=== PATIENT | female | born 1990 | race Caucasian/White ===

== ENCOUNTER → 2017-01-10 | Outpatient (CLI) | payer OTHER ==
[~2017-01-10] MED LIST: ACET-749 PO; BCPILLS PO; FERR325T51 PO; IMT50 PO; PRENTAB26 PO; WLLXL300 PO
== END | disposition home or self-care (01) ==
LOC: C.PAPS 15:04
PROVIDERS: ATTEND Obstetrics & Gynecology
DX: Z12.4 Encounter for screening for malignant neoplasm of cervix (principal)

== ENCOUNTER 2017-03-06 20:06 | Emergency (ER) | payer OTHER ==
[~2017-03-06] VITALS: Ht 157.5 cm; Wt 73.3 kg
[~2017-03-06 20:06] MED LIST changes: -BCPILLS PO; -IMT50 PO; -WLLXL300 PO
[2017-03-06 20:18] VITALS: Ht 157.5 cm; Wt 73.3 kg
[2017-03-06] MEDS ORDERED: ONDANSETRON INJ 2 MG/ML 2 ML VIAL IV STA (20:28)
[2017-03-06] MEDS ORDERED: SODIUM CHLORIDE 0.9% 1000ML 1,000 ML IV STA (20:28)
[2017-03-06] MEDS ORDERED: KETOROLAC TROMETHAMINE 30 MG/ML VIAL IV STA (20:28)
[2017-03-06] MEDS ORDERED: DiphenhydrAMINE HCL 50 MG/ML VIAL IV STA (20:28)
[2017-03-06] MEDS ORDERED: PROCHLORPERAZINE 5 MG/ML 2 ML VIAL IV STA (20:28)
[2017-03-06 20:47] LABS: URINE APPEARANCE CLOUDY (CLEAR); URINE BILIRUBIN NEG (NEG); URINE COLOR DK YELLOW; URINE EPITHELIAL CELL AUTO >30 /lpf (0-5); URINE NITRITE NEG (NEG); UROBILINOGEN NEG (NEG)
[2017-03-06 20:51] LABS: MANUAL MICROSCOPIC REQUIRED? NO; REVIEW REQ? YES
[2017-03-06 20:56] LABS: BASO % 0.2 %; BASO ABS # 0.02 K/uL (0-0.2); COMPLETE YES; EOS % 0.3 %; IG% 0.1 %; LYMPH % 20.2 %; LYMPH ABS # 1.94 K/uL (1.2-3.4); MEAN CELL VOLUME 83.8 fL (80-100); MEAN CORPUSCULAR HGB CONC 32.2 g/dl (32-36); MEAN PLATELET VOLUME 11.9 fL (7.4-10.4); MONO % 8.9 %; NEUT % 70.3 %; PLATELET COUNT 271 K/uL (130-400); RED BLOOD COUNT 4.89 M/uL (4.2-5.4); WHITE BLOOD COUNT 9.59 K/uL (4.8-10.8)
[2017-03-06 20:59] LABS: URINE PATH CASTS 0-3 WBC CASTS /lpf (0)
[2017-03-06 21:00] LABS: ZZUR CULT IF INDIC CLEAN CATCH YES
--- NOTE | 2017-03-06 21:02 | DIAGNOSTIC IMAGING REPORT ---
CHEST ONE VIEW PORTABLE CLINICAL HISTORY: Abdominal pain COMPARISON STUDY: No previous studies for comparison. FINDINGS: The cardiac and mediastinal contours are normal. There is no evidence of focal pulmonary consolidation. There is no evidence of failure. No pleural effusions are visualized.[ No free air is visualized. IMPRESSION: No active disease in the chest. Electronically signed by: Fortunato Daley M.D. 03/06/2017 9:01 PM Dictated Date/Time: 03/06/2017 9:00 PM
[2017-03-06 21:08] LABS: ALT/SGPT 17 U/L (12-78); BLOOD UREA NITROGEN 6 mg/dl (7-18); BUN/CREATININE RATIO 7.5 (10-20); CALCIUM 8.7 mg/dl (8.5-10.1); CARBON DIOXIDE 23 mmol/L (21-32); CHLORIDE 107 mmol/L (98-107); CREATININE 0.83 mg/dl (0.60-1.20); GLUCOSE 97 mg/dl (70-99); POTASSIUM 3.4 mmol/L (3.5-5.1); SODIUM 139 mmol/L (136-145)
[2017-03-06 21:11] LABS: ALKALINE PHOSPHATASE 84 U/L (45-117); AST/SGOT 17 U/L (15-37)
[2017-03-06] MEDS ORDERED: WLLXL300 PO (21:22)
[2017-03-06] MEDS ORDERED: BCPILLS PO (21:22)
[2017-03-06] MEDS ORDERED: IMT50 PO (21:25)
--- NOTE | 2017-03-06 21:58 | EMERGENCY ROOM VISIT NOTE ---
History Report prepared by Tae: Jacy Wick Under the Supervision of: Dr. Jorge Bergeron D.O. First contact with patient: 20:19 Chief Complaint: VOMITING Stated Complaint: PAIN BEHIND EYES DOWN BACK OF NECK/SPINE,VOMITING, Nursing Triage Summary: pt reports I awoke at 0200 with migraine and NV reports hx of migraine has tried all of my home meds with no help History of Present Illness The patient is a 26 year old female who presents to the Emergency Room with complaints of a persistent illness that began around 0200. She currently rates her discomfort as a 10/10 in severity. The patient states that recently her two children were sick, noting that they had vomited once. She states that today around 0200 she woke up with a pain behind her bilateral eyes. The patient states that she developed a migraine and noticed pain radiating around her head and down her neck. She reports difficulty turning her head. The patient additionally reports nausea and vomiting. She states that she vomited five times today. The patient states that she develops abdominal pain and cramps when she vomits. She states that today she almost fell in her kitchen due to persistent dizziness. The patient states that on Monday she went to Urgent Care for "pain in her lungs." She states that nothing was done and was told that she may have an infection. The patient is unsure if she is and states that her control was recently changed. Source of History: patient Onset: 0200 Position: other (global) Symptom Intensity: 10/10 Quality: other (illness) Timing: other (persistent) Associated Symptoms: + headache, + neck pain, + nausea, + vomiting, + abdominal pain Note: Associated Symptoms: pain behind bilateral eyes, difficulty turning her head Review of Systems See HPI for pertinent positives & negatives. A total of 10 systems reviewed and were otherwise negative. Past Medical & Surgical Medical Problems: (1) Active labor (2) Decreased movement (3) Macrosomia Family History No pertinent family history stated. Social History Smoking Status: Never Smoker Drug Use: none Marital Status: Housing Status: lives with family Occupation Status: student Current/Historical Medications Scheduled Control Pills ( Control Pills), 1 TAB PO DAILY Bupropion HCl (Bupropion HCl Xl), 300 MG PO DAILY Scheduled PRN Sumatriptan Succinate (Sumatriptan Succinate), 50 MG PO UD PRN for Migraine Allergies Coded Allergies: Sulfamethoxazole w/Trimethoprim (Verified Allergy, Severe, ANAPHYLAXIS, ) Amoxicillin (Unverified Allergy, Unknown, VOMITING, 11/06/15) Coconut (Unverified Allergy, Unknown, THROAT GETS ITCHY AND SWELLS, ) Physical Exam Vital Signs Date Time Temp Pulse Resp B/P (MAP) Pulse Ox O2 Delivery O2 Flow Rate FiO2 03/06/17 20:18 36.7 103 20 119/79 99 Room Air Physical Exam CONSTITUTIONAL/VITAL SIGNS: Reviewed / noted above. GENERAL: Non-toxic in appearance. INTEGUMENTARY: Warm, dry, and Stella. HEAD: Normocephalic. EYES: without scleral icterus or trauma. ENT/OROPHARYNX: clear and moist. LYMPHADENOPATHY/NECK: Is supple without lymphadenopathy or meningismus. RESPIRATORY: Lungs clear and equal. CARDIOVASCULAR: Regular rate and rhythm. GI/ABDOMEN: Soft and nontender. No organomegaly or pulsatile mass. No rebound or guarding. Normal bowel sounds. EXTREMITIES: Warm and well perfused. BACK: No CVA tenderness. NEUROLOGICAL: Intact without focal deficits. PSYCHIATRIC: normal affect. MUSCULOSKELETAL: Normally developed with good muscle tone. Medical Decision & Procedures ER Provider Diagnostic Interpretation: X ray results and stated below per my interpretation and radiology interpretation. CHEST ONE VIEW PORTABLE CLINICAL HISTORY: Abdominal pain COMPARISON STUDY: No previous studies for comparison. FINDINGS: The cardiac and mediastinal contours are normal. There is no evidence of focal pulmonary consolidation. There is no evidence of failure. No pleural effusions are visualized.[ No free air is visualized. IMPRESSION: No active disease in the chest. Electronically signed by: Fortunato Daley M.D. 03/06/2017 9:01 PM Dictated Date/Time: 03/06/2017 9:00 PM Laboratory Results 03/06/17 20:40 Red Blood Count 4.89, Mean Corpuscular Volume 83.8, Mean Corpuscular Hemoglobin 27.0, Mean Corpuscular Hemoglobin Concent 32.2, Mean Platelet Volume 11.9, Neutrophils (%) (Auto) 70.3, Lymphocytes (%) (Auto) 20.2, Monocytes (%) (Auto) 8.9, Eosinophils (%) (Auto) 0.3, Basophils (%) (Auto) 0.2, Neutrophils # (Auto) 6.74, Lymphocytes # (Auto) 1.94, Monocytes # (Auto) 0.85, Eosinophils # (Auto) 0.03, Basophils # (Auto) 0.02 03/06/17 20:40 Test 03/06/17 20:20 03/06/17 20:40 Urine Color DK YELLOW Urine Appearance CLOUDY (CLEAR) Urine pH 6.0 (4.5-7.5) Urine Specific [place] 1.030 (1.000-1.030) Urine Protein TRACE (NEG) Urine Glucose (UA) NEG (NEG) Urine Ketones TRACE (NEG) Urine Occult Blood NEG (NEG) Urine Nitrite NEG (NEG) Urine Bilirubin NEG (NEG) Urine Urobilinogen NEG (NEG) Urine Leukocyte Esterase SMALL (NEG) Urine WBC (Auto) 10-30 /hpf (0-5) Urine RBC (Auto) 0-4 /hpf (0-4) Urine Hyaline Casts (Auto) 1-5 /lpf (0-5) Urine Epithelial Cells (Auto) >30 /lpf (0-5) Urine Bacteria (Auto) 1+ (NEG) Urine Pathogenic Casts 0-3 WBC CASTS /lpf (0) White Blood Count 9.59 K/uL (4.8-10.8) Red Blood Count 4.89 M/uL (4.2-5.4) Hemoglobin 13.2 g/dL (12.0-16.0) Hematocrit 41.0 % (37-47) Mean Corpuscular Volume 83.8 fL (80-100) Mean Corpuscular Hemoglobin 27.0 pg (25-34) Mean Corpuscular Hemoglobin Concent 32.2 g/dl (32-36) Platelet Count 271 K/uL (130-400) Mean Platelet Volume 11.9 fL (7.4-10.4) Neutrophils (%) (Auto) 70.3 % Lymphocytes (%) (Auto) 20.2 % Monocytes (%) (Auto) 8.9 % Eosinophils (%) (Auto) 0.3 % Basophils (%) (Auto) 0.2 % Neutrophils # (Auto) 6.74 K/uL (1.4-6.5) Lymphocytes # (Auto) 1.94 K/uL (1.2-3.4) Monocytes # (Auto) 0.85 K/uL (0.11-0.59) Eosinophils # (Auto) 0.03 K/uL (0-0.5) Basophils # (Auto) 0.02 K/uL (0-0.2) RDW Standard Deviation 39.5 fL (36.4-46.3) RDW Coefficient of Variation 13.0 % (11.5-14.5) Immature Granulocyte % (Auto) 0.1 % Immature Granulocyte # (Auto) 0.01 K/uL (0.00-0.02) Anion Gap 9.0 mmol/L (3-11) Est Creatinine Clear Calc Drug Dose 97.1 ml/min Estimated GFR () 113.6 Estimated GFR (Non- 98.0 BUN/Creatinine Ratio 7.5 (10-20) Calcium Level 8.7 mg/dl (8.5-10.1) Total Bilirubin 0.2 mg/dl (0.2-1) Direct Bilirubin < 0.1 mg/dl (0-0.2) Aspartate Amino Transf (AST/SGOT) 17 U/L (15-37) Alanine Aminotransferase (ALT/SGPT) 17 U/L (12-78) Alkaline Phosphatase 84 U/L (45-117) Total Protein 7.5 gm/dl (6.4-8.2) Albumin 3.4 gm/dl (3.4-5.0) Lipase 175 U/L (73-393) Laboratory results as stated above per my review. Medications Administered Medications (Trade) Dose Ordered Sig/[place] Route Start Time Stop Time Status Last Admin Dose Admin Sodium Chloride 1,000 ml @ 999 mls/hr Q1H1M STAT IV 03/06/17 20:28 03/06/17 21:28 DC 03/06/17 20:28 999 MLS/HR Ondansetron HCl (Zofran Inj) 4 mg NOW STAT IV 03/06/17 20:28 03/06/17 20:30 DC 03/06/17 20:52 4 MG Ketorolac Tromethamine (Toradol Inj) 30 mg NOW STAT IV 03/06/17 20:28 03/06/17 20:30 DC 03/06/17 20:53 30 MG Prochlorperazine Edisylate (Compazine Inj) 10 mg NOW STAT IV 03/06/17 20:28 03/06/17 20:30 DC 03/06/17 20:53 10 MG Diphenhydramine HCl (Benadryl Inj) 50 mg NOW STAT IV 03/06/17 20:28 03/06/17 20:30 DC 03/06/17 20:52 50 MG ED Course 2022: Previous medical records were reviewed. The patient was evaluated in room A10. A complete history and physical examination was performed. 2027: Ordered Benadryl Inj 50 mg IV, Compazine Inj 10 mg IV, Toradol Inj 30 mg IV, Zofran Inj 4 mg IV, Sodium Chloride 1000 ml @ 999 mls/hr IV. 2144: I reevaluated the patient and she is resting. I discussed the exam findings with her and I discussed the treatment plan. She verbalized complete understanding and agreement. She is ready to go home. Medical Decision Differential diagnosis: Etiologies such as gastroenteritis, food borne illness, infections, appendicitis , diverticulitis, inflammatory bowel disease, obstruction, GI bleed, biliary pathology, as well as others were entertained. This is a 26-year-old female who presents to the ED with a chief complaint of nausea and vomiting. She also reports a migraine that started this morning around 2 AM. She states that both of her kids are sick for a day recently as well as some vomiting. She states that her body hurts and she feels dizzy. Her physical exam was unremarkable. Her vital signs are normal. Chest x-ray did not show acute disease. CBC was normal, complete metabolic panel was unremarkable. Lipase was negative. Urine appears contaminated. test was negative. The patient was hydrated with normal saline 1 L IV , Zofran IV, Toradol IV, Compazine IV, Benadryl IV. On reassessment, she is feeling much better. She is felt to be stable for discharge and outpatient follow-up. Medication Reconcilliation Current Medication List: was personally reviewed by me Blood Pressure Screening Patient's blood pressure: Normal blood pressure Blood pressure disposition: Did not require urgent referral Impression Primary Impression: Vomiting Additional Impression: Headache Scribe Attestation The scribe's documentation has been prepared under my direction and personally reviewed by me in its entirety. I confirm that the note above accurately reflects all work, treatment, procedures, and medical decision making performed by me. Departure Information Dispostion Home / Self-Care Referrals No Doctor, Assigned (PCP) Patient Instructions My [facility] Additional Instructions Follow-up with your doctor for further care and evaluation in 1-2 days. Return to the emergency department for worsening or new symptoms or any concerns. You have been examined and treated today on an emergency basis only. This is not a substitute for, or an effort to provide, complete comprehensive medical care. It is impossible to recognize and treat all injuries or illnesses in a single emergency department visit. It is therefore important that you follow up closely with your doctor. Call as soon as possible for an appointment. Problem Qualifiers
[2017-03-06 22:25] VITALS: BP 123/62; PULSE 92; TEMP 36.7; O2SAT 97
== END 2017-03-06 22:26 | disposition home or self-care (01) ==
LOC: C.EDB 20:07 → C.EDA 22:26
DX: R11.10 Vomiting, unspecified (principal); R51 Headache; R11.0 Nausea; Z88.1 Allergy status to other antibiotic agents; Z88.2 Allergy status to sulfonamides; Z91.018 Allergy to other foods

== ENCOUNTER 2021-05-15 22:16 | Inpatient (IN) ==
[2021-05-15] MEDS ORDERED: LACTATED RINGER'S 1,000 ML IV PRN (22:46)
[2021-05-15] MEDS ORDERED: OXYTOCIN 30 UNITS/500 ML BAG IV PRN ×2 (22:46→23:24)
[2021-05-15 23:15] LABS: Hematocrit (blood only) 34.5 % (37-47); Hemoglobin 11.5 g/dL (12.0-16.0); Mean Corpuscular Hemoglobin 27.4 pg (25-34); Mean Corpuscular Hgb Conc 33.3 g/dL (32-36); Mean Corpuscular Volume 82.3 fL (80-100); Mean Platelet Volume 12.3 fL (7.4-10.4); Platelet Count 179 K/uL (130-400); RDW Coefficient of Variation 15.5 % (11.5-14.5); RDW Standard Deviation 46.6 fL (36.4-46.3); Red Blood Count 4.19 M/uL (4.2-5.4); White Blood Count 12.54 K/uL (4.8-10.8)
[2021-05-16] MEDS ORDERED: ePHEDrine sulfate 50 MG/ML AMP ONE (01:28)
[2021-05-16] MEDS ORDERED: BUPIVACAINE 0.25% 30 ML VIAL ONE (01:28)
[2021-05-16] MEDS ORDERED: SODIUM CHLORIDE 0.9% INJ 10 ML VIAL ONE (01:28)
[2021-05-16] MEDS ORDERED: fentaNYL 2MCG/ML ROPIVACAINE 1.25MG/ML 100 ML BAG EPI ONE (01:29)
[2021-05-16] MEDS ORDERED: fentaNYL citrate 100 MCG/2 ML VIAL ONE (01:29)
[2021-05-16] MEDS ORDERED: ePHEDrine sulfate 50 MG/ML AMP IV PRN (01:36)
[2021-05-16] MEDS ORDERED: diphenhydrAMINE 50 MG/ML VIAL IV PRN (01:36)
[2021-05-16] MEDS ORDERED: NALOXONE HCL 0.4 MG/1 ML VIAL/CARP IV PRN (01:36)
[2021-05-16] MEDS ORDERED: NALOXONE HCL 1 MG in SODIUM CHLORIDE 0.9% 1000ML 1,000 ML IV PRN (01:36)
[2021-05-16] MEDS ORDERED: ONDANSETRON INJ 2 MG/ML 2 ML VIAL IV PRN (01:36)
[2021-05-16] MEDS ORDERED: fentaNYL 2MCG/ML ROPIVACAINE 1.25MG/ML 100 ML BAG EPI PRN (01:36)
[2021-05-16] MEDS ORDERED: NALBUPHINE HCL INJ 10 MG/ML AMP IV PRN (01:36)
--- NOTE | 2021-05-16 01:40 | Anesthesiology Consultation ---
Date of Service May 16, 2021 Assessment & Plan (1) Encounter for pre-operative examination: Chart Review Chart Review: Patient NOT seen in Pre Admission Testing and Acceptable Risk for Labor Epidural Consults Requested none History Height/Weight Height: 5 ft 2 in Weight: 90.265 kg Allergies Allergy/AdvReac Type Severity Reaction Status Date / Time Bactrim Allergy Severe ANAPHYLAXIS Verified 11/06/15 16:42 sulfamethoxazole [Bactrim] Allergy Severe ANAPHYLAXIS Verified 05/15/21 23:31 trimethoprim [Bactrim] Allergy Severe ANAPHYLAXIS Verified 05/15/21 23:31 coconut Allergy Unknown THROAT Verified 05/15/21 23:31 GETS ITCHY AND SWELLS amoxicillin AdvReac Unknown VOMITING Verified 05/16/21 01:45 Medications Home Medications Medication Instructions Recorded Confirmed Last Taken lamotrigine 100 mg tablet 100 mg PO DAILY 05/07/21 05/15/21 05/15/21 08:00 (Lamictal) prenat.vits,risa,dor-cgng-qkiig 1 tab PO DAILY 05/07/21 05/15/21 05/15/21 08:00 Active Medications Generic Name Dose Route Start Last Admin Trade Name Freq PRN Reason Stop Dose Admin Lactated Ringer's 1,000 mls @ 125 mls/hr 05/15/21 22:46 05/15/21 23:33 Lr IV 05/17/21 22:45 125 mls/hr .Q8H PRN Administration L&D Protocol Protocol Oxytocin 30 units in 500 mls @ 8 mls/hr 05/15/21 23:24 05/16/21 01:15 Pitocin IV 05/17/21 23:23 0.48 units/hr .Q24H PRN 8 mls/hr Labor Induction/Augmentation Titration Protocol 0.48 UNITS/HR Past Medical History Medical History (Updated 05/16/21 @ 01:58 by Tyrell Perez MD) Anxiety Encounter for pre-operative examination FH: cholecystectomy (spontaneous vaginal delivery) 2012,2015 Exercise / Class Metabolic Activity II 4-5 Yardwork/Stairs/Walk up hill Past Anesthesia History No Hx of Anesthesia Complications and No Family Hx of Anesthesia Complications History of PONV No Hx of PONV and No Hx of Motion Sickness Social History Smoking Status: Never smoker Hx Alcohol Use: No Hx Substance Use: No substance use type: does not use Physical Exam Vital Signs Last Vital Signs Temp 36.4 C L 05/16/21 00:30 Pulse 71 05/16/21 01:31 Resp 18 05/15/21 22:27 BP 122/75 05/16/21 01:19 Pulse Ox 100 05/16/21 01:31 Testing Laboratory Results 05/15/21 22:59
[2021-05-16] MEDS ORDERED: DIPHTHERIA/TETANUS/PERTUSSIS 0.5 ML SYR/VIAL IM ONE (03:14)
[2021-05-16] MEDS ORDERED: ACETAMINOPHEN 325 MG TAB PO PRN (03:14)
[2021-05-16] MEDS ORDERED: HYDROCORTISONE ACETATE 25 MG SUPP PR PRN (03:14)
[2021-05-16] MEDS ORDERED: ACETAMINOPHEN W/CODEINE #3 1 TAB PO PRN (03:14)
[2021-05-16] MEDS ORDERED: OXYTOCIN 30 UNITS/500 ML BAG IV PRN (03:14)
[2021-05-16] MEDS ORDERED: bisacodyL 10 MG SUPP PR PRN (03:14)
[2021-05-16] MEDS ORDERED: BENZOCAINE 20% AER SPR 82.5 GM CAN EXT PRN (03:14)
[2021-05-16] MEDS ORDERED: oxyCODONE/ACETAMINOPHEN 5mg/325mg TAB PO PRN (03:14)
[2021-05-16] MEDS ORDERED: METHYLERGONOVINE MALEATE 0.2 MG/ML AMP IM ONE (03:14)
[2021-05-16] MEDS ORDERED: SUPERCREAM 0.870% 15 GM JAR EXT PRN (03:14)
--- NOTE | 2021-05-16 08:55 | Anesthesia Procedure Note ---
Date of Service May 16, 2021 Anesthesia Post Epidural Note Vital Signs Vital Signs: Temp Pulse Resp BP Pulse Ox 36.5 C 73 18 109/63 99 05/16/21 05:35 05/16/21 05:35 05/16/21 05:35 05/16/21 05:35 05/16/21 03:16 Pain Intensity Bilateral Abdomen: Pain Intensity: 2 Notes Mental Status: alert / awake / arousable and participated in evaluation Nausea / Vomiting: adequately controlled Pain: adequately controlled Airway Patency, RR, SpO2: stable & adequate BP & HR: stable & adequate Hydration State: stable & adequate Neuraxial Anesthesia: was administered and sensory block is resolving Anesthetic Complications: no major complications apparent and Pt Satisfied with anesthetic care Epidural: Removed without complications and With tip intact
[2021-05-16] MEDS: DOCUSATE SODIUM 100 MG CAP PO SCH ×2 (09:21→19:52)
[2021-05-16] MEDS: PRENATAL VITAMIN 1 TAB PO SCH (09:21)
--- NOTE | 2021-05-16 11:41 | Delivery Summary ---
DELIVERY NOTE DATE OF SERVICE: 05/16/2021. HOSPITAL COURSE: Maricruz is a 3, para 3, blood type is O positive, group B strep negative, was admitted at 37 weeks with raimundo rupture of membranes. On admission, she was about 3-4 cm dilated . She was gushing fluid. She was immediately started on IV Pitocin. Pitocin was gradually turned u p. Eventually, she requested and received epidural for pain relief and then about an hour after she got the epidural, she was fully dilated. With about 3 pushes, she pushed out a live male via d irect occiput anterior position over an intact perineum. was suctioned through the mouth and the nose. Shoulders were delivered without difficulty. Cord was allowed to pulse for a minute, then clamped, cut by the father. With IV Pitocin running and IM Methergine given, the placenta was remov ed intact. Inspection of the perineum revealed the perineum to be intact. Uterus contracted nicely. Estimated blood loss was 100 mL. The patient tolerated delivery well. Job ID: [id number]
[2021-05-16] MEDS: IBUPROFEN 600 MG TAB PO PRN ×2 (12:51→17:15)
[2021-05-17] MEDS: IBUPROFEN 600 MG TAB PO PRN (03:12)
[2021-05-17 05:58] LABS: Hematocrit (blood only) 34.3 % (37-47); Hemoglobin 11.2 g/dL (12.0-16.0); Mean Corpuscular Hemoglobin 27.3 pg (25-34); Mean Corpuscular Hgb Conc 32.7 g/dL (32-36); Mean Corpuscular Volume 83.5 fL (80-100); Mean Platelet Volume 11.9 fL (7.4-10.4); Platelet Count 150 K/uL (130-400); RDW Coefficient of Variation 15.7 % (11.5-14.5); RDW Standard Deviation 47.6 fL (36.4-46.3); Red Blood Count 4.11 M/uL (4.2-5.4); White Blood Count 11.97 K/uL (4.8-10.8)
[2021-05-17] MEDS: PRENATAL VITAMIN 1 TAB PO SCH (08:58)
[2021-05-17] MEDS: DOCUSATE SODIUM 100 MG CAP PO SCH (08:58)
--- NOTE | 2021-05-17 09:04 | Obstetrical Progress Note ---
Date of Service May 17, 2021 Assessment & Plan Admission and Anticipated Discharge Date Admission Date: May 15, 2021 Subjective abdomen soft band non tender no calf tenderness ambulating well vaginal bleeding scant hgb 11.2 Results & Data ([facility]) Vital Signs (Past 12 Hours) Vital Signs Temp Pulse Resp BP Pulse Ox 05/17/21 07:16 36.4 C L 65 16 98/61 L 98 05/17/21 03:05 37.2 C 64 16 104/69 98 05/16/21 23:05 36.3 C L 64 16 111/72 96
[2021-05-17] MEDS ORDERED: bisacodyL 5 MG TABEC PO SCH (20:00)
== END 2021-05-17 11:20 | disposition home or self-care (01) | DRG 807 ==
LOC: EDINP 22:16 → OPB 22:16 → EDSTATUS 22:16 → 4S1 22:18 → EDINP 22:46 → 4S1 22:46 → 4S2 05-16 05:47 → EDINP 05-16 05:47 → UNDODISIN 05-17 11:20